=== PATIENT | male | born 1980 | race Caucasian/White ===

== ENCOUNTER → 2018-11-01 | Outpatient (REF) | payer OTHER ==
[2018-11-01 12:55] LABS: ALBUMIN 3.8 GM/DL (3.2-5.2); ALT/SGPT 33 U/L (12-78); BILIRUBIN,TOTAL 0.4 MG/DL (0.2-1.0); BLOOD UREA NITROGEN 17 MG/DL (7-18); CALCIUM LEVEL 9.1 MG/DL (8.5-10.1); CARBON DIOXIDE LEVEL 27 MEQ/L (21-32); CHLORIDE LEVEL 105 MEQ/L (98-107); CHOLESTEROL LEVEL 177 MG/DL (<200); CHOLESTEROL RISK RATIO 4.022 (<5); CREATININE FOR GFR 0.88 MG/DL (0.70-1.30); GLOMERULAR FILTRATION RATE > 60.0 (>60); GLUCOSE, FASTING 84 MG/DL (70-100); HDL CHOLESTEROL 44 MG/DL (>40); LDL CHOLESTEROL 88 MG/DL (<100); NON-HDL-C 133 MG/DL; POTASSIUM SERUM 4.4 MEQ/L (3.5-5.1); SODIUM LEVEL 140 MEQ/L (136-145); TOTAL PROTEIN 6.7 GM/DL (6.4-8.2); TRIGLYCERIDES LEVEL 223 MG/DL (<150)
== END ==
LOC: M SFHCCLAY 07:11
PROVIDERS: ATTEND Family Medicine
DX: Z00.00 Encounter for general adult medical examination without abnormal findings (principal); Z13.220 Encounter for screening for lipoid disorders; Z13.1 Encounter for screening for diabetes mellitus; Z83.3 Family history of diabetes mellitus

== ENCOUNTER 2019-05-15 09:01 | Day surgery (SDC) | payer BC ==
[~2019-05-15] VITALS: Ht 175.3 cm; Wt 104.3 kg
[~2019-05-15 09:01] MED LIST: NS 1,000 ML IV ONE
[2019-05-15] MEDS ORDERED: LIDOCAINE 2% INJ 100 MG/5 ML SDV (FOR ANES.) As Ordered ONE (10:22)
[2019-05-15] MEDS ORDERED: PROPOFOL 500 MG/50 ML VIAL As Ordered ONE (10:22)
--- NOTE | 2019-05-15 10:35 | ROOR ---
Patient Name: Leroy Devries Procedure Date: 05/15/2019 10:18 AM Date of : 1980 Age: 39 Room: [facility] Gender: Male Note Status: Finalized Procedure: Total Colonoscopy to Cecum + ileoscopy Indications: Rectal bleeding Providers: Tae Samuel MD Referring MD: Lisette MOSQUEDA DO Requesting Provider: Medicines: Monitored Anesthesia Care Complications: No immediate complications. Procedure: Pre-Anesthesia Assessment: - The heart rate, respiratory rate, oxygen saturations, blood pressure, adequacy of pulmonary ventilation, and response to care were monitored throughout the procedure. The Colonoscope was introduced through the anus and advanced to the terminal ileum, with identification of the appendiceal orifice and IC valve. The colonoscopy was performed without difficulty. The patient tolerated the procedure well. The quality of the bowel preparation was excellent. Findings: The perianal and digital rectal examinations were normal. Non-bleeding external hemorrhoids were found during retroflexion. The hemorrhoids were small and Grade I (internal hemorrhoids that do not prolapse). No other significant abnormalities were identified in a careful examination of the remainder of the colon. The exam was otherwise without abnormality on direct and retroflexion views. The terminal ileum appeared normal. Impression: - Non-bleeding external hemorrhoids. - The examination was otherwise normal on direct and retroflexion views. - The examined portion of the ileum was normal. - No specimens collected. - The exam was otherwise normal to the cecum. Recommendation: - Patient has a contact number available for emergencies. The signs and symptoms of potential delayed complications were discussed with the patient. Return to normal activities tomorrow. Written discharge instructions were provided to the patient. - Discharge patient to home. - Continue present medications. - Repeat colonoscopy at age 51 for screening purposes. - Return to referring physician. - The findings and recommendations were discussed with the patient's family. Tae Samuel MD Tae Samuel MD 05/15/2019 10:35:43 AM Electronically signed by Tae Samuel MD Number of Addenda: 0 Note Initiated On: 05/15/2019 10:18 AM Estimated Blood Loss: Estimated blood loss: none.
[2019-05-15 10:55] VITALS: BP 127/78
== END 2019-05-15 11:08 | disposition home or self-care (01) ==
LOC: M OPP 09:01
PROVIDERS: ATTEND Internal Medicine Gastroenterology
DX: K64.0 First degree hemorrhoids (principal); K62.5 Hemorrhage of anus and rectum

== ENCOUNTER → 2020-11-26 | Outpatient (REF) | payer OTHER ==
[2020-11-26 12:23] LABS: BLOOD UREA NITROGEN 18 MG/DL (7-18); CALCIUM LEVEL 9.3 MG/DL (8.5-10.1); CARBON DIOXIDE LEVEL 28 MEQ/L (21-32); CHLORIDE LEVEL 107 MEQ/L (98-107); CHOLESTEROL LEVEL 174 MG/DL (<200); CHOLESTEROL RISK RATIO 3.346 (<5); CREATININE FOR GFR 0.95 MG/DL (0.70-1.30); GLOMERULAR FILTRATION RATE > 60.0 (>60); GLUCOSE, FASTING 83 MG/DL (70-100); HDL CHOLESTEROL 52 MG/DL (>40); LDL CHOLESTEROL 97 MG/DL (<100); NON-HDL-C 122 MG/DL; POTASSIUM SERUM 4.4 MEQ/L (3.5-5.1); SODIUM LEVEL 140 MEQ/L (136-145); TRIGLYCERIDES LEVEL 127 MG/DL (<150)
== END ==
LOC: M SFHCCLAY 08:03
PROVIDERS: ATTEND Family Medicine
DX: Z00.00 Encounter for general adult medical examination without abnormal findings (principal); E78.1 Pure hyperglyceridemia; Z13.1 Encounter for screening for diabetes mellitus; Z83.3 Family history of diabetes mellitus

== ENCOUNTER → 2020-12-22 | Outpatient (CLI) | payer OTHER ==
[~2020-12-22] MED LIST changes: -NS 1,000 ML IV ONE; +PARO20TA4 PO
== END ==
LOC: M LABSMTC 08:00
PROVIDERS: ATTEND Anesthesiology
DX: Z01.812 Encounter for preprocedural laboratory examination (principal); Z20.822 Contact with and (suspected) exposure to COVID-19

== ENCOUNTER 2020-12-27 09:04 | Day surgery (SDC) | payer OTHER ==
[~2020-12-27] VITALS: Ht 172.7 cm; Wt 97.1 kg
[~2020-12-27 09:04] MED LIST changes: +LR 1,000 ML IV ONE; +ceFAZolin SOD 2 GM in IV 1 EA IV ONE
[2020-12-27 09:53] LABS: HEMATOCRIT 42.7 % (42.0-52.0); HEMOGLOBIN 13.8 g/dl (13.5-17.5); MEAN CORPUSCULAR HEMOGLOBIN 28.8 pg (27.0-33.0); MEAN CORPUSCULAR HGB CONC 32.3 g/dl (32.0-36.5); MEAN CORPUSCULAR VOLUME 89.1 fl (80.0-96.0); PLATELET COUNT, AUTOMATED 179 10^3/uL (150-450); RED BLOOD COUNT 4.79 10^6/uL (4.30-6.10); WHITE BLOOD COUNT 7.2 10^3/uL (4.0-10.0)
[2020-12-27] MEDS ORDERED: fentaNYL 250 MCG/5 ML INJECTION (J3010) As Ordered ONE (10:10)
[2020-12-27] MEDS ORDERED: ONDANSETRON 4MG/2ML VIAL As Ordered ONE (10:11)
[2020-12-27] MEDS ORDERED: LIDOCAINE 2% 100MG/5ML SDV (FOR ANES.) As Ordered ONE (10:11)
[2020-12-27] MEDS ORDERED: KETOROLAC 60MG 2ML VIAL As Ordered ONE (10:11)
[2020-12-27] MEDS ORDERED: MIDAZOLAM INJ 2MG/2ML VIAL (J2250 PER 1MG) As Ordered ONE (10:11)
[2020-12-27] MEDS ORDERED: dexameTHASONE 4 MG/ML 1ML VIAL (J1100 PER 1MG) As Ordered ONE (10:11)
[2020-12-27] MEDS ORDERED: ROCURONIUM BROMIDE 50 MG/5 ML VIAL As Ordered ONE ×2 (10:11→11:46)
[2020-12-27] MEDS ORDERED: propofoL 200 MG/20 ML VIAL As Ordered ONE ×2 (10:12→11:24)
[2020-12-27] MEDS ORDERED: BUPIVACAINE/EPIN 0.25% 30 ML VIAL As Ordered ONE (11:02)
[2020-12-27] MEDS ORDERED: GLYCOPYRROLATE INJ 0.2 MG/ML 2 ML VIAL As Ordered ONE (11:22)
[2020-12-27] MEDS ORDERED: SUGAMMADEX SODIUM 500 MG/5 ML VIAL (BRIDION) As Ordered ONE (11:45)
[2020-12-27] MEDS ORDERED: ACETAMINOPHEN 1000MG 100ML IV BTL (OFIRMEV) (J0131 PER 10MG) As Ordered ONE (11:48)
[2020-12-27] MEDS ORDERED: oxyCODONE 5MG TAB PO PRN (12:45)
[2020-12-27] MEDS ORDERED: fentaNYL 100 MCG/2 ML INJECTION (J3010) IV PRN (12:45)
[2020-12-27] MEDS ORDERED: NS 1,000 ML IV SCH (12:45)
[2020-12-27] MEDS ORDERED: LR 1,000 ML IV SCH (12:45)
[2020-12-27] MEDS ORDERED: PERCOCET 5MG/325MG TAB PO PRN (12:45)
[2020-12-27] MEDS ORDERED: ONDANSETRON 4MG/2ML VIAL IV PRN (12:45)
[2020-12-27 14:30] VITALS: BP 142/85
== END 2020-12-27 14:35 | disposition home or self-care (01) ==
LOC: M SDC 09:04
PROVIDERS: ATTEND Surgery
DX: K80.10 Calculus of gallbladder with chronic cholecystitis without obstruction (principal); F32.9 Major depressive disorder, single episode, unspecified; Z79.899 Other long term (current) drug therapy
CPT/HCPCS: 36415; 47562; 85027; 88304; J0131; J0690; J1100; J1885; J2250; J2405; J3010

== ENCOUNTER → 2022-11-05 | Outpatient (REF) | payer OTHER ==
[~2022-11-05] MED LIST changes: -LR 1,000 ML IV ONE; -ceFAZolin SOD 2 GM in IV 1 EA IV ONE
[2022-11-05 17:49] LABS: HEMOGLOBIN A1c 5.1 % (4.0-6.0)
[2022-11-05 18:07] LABS: BLOOD UREA NITROGEN 21 MG/DL (9-23); CALCIUM LEVEL 9.5 MG/DL (8.5-10.1); CARBON DIOXIDE LEVEL 25 MMOL/L (20-31); CHLORIDE LEVEL 106 MMOL/L (98-107); CHOLESTEROL LEVEL 177 MG/DL (<200); CHOLESTEROL RISK RATIO 3.12 (<5); CREATININE FOR GFR 0.84 MG/DL (0.70-1.30); FREE T4 1.19 NG/DL (0.89-1.76); GLOMERULAR FILTRATION RATE > 60.0 (>60); GLUCOSE, FASTING 87 MG/DL (60-100); HDL CHOLESTEROL 56.7 MG/DL (>40); LDL CHOLESTEROL 107.1 MG/DL (<100); NON-HDL-C 120 MG/DL; SODIUM LEVEL 138 MMOL/L (136-145); THYROID STIMULATING HORMONE 0.632 uIU/ML (0.55-4.78); TRIGLYCERIDES LEVEL 66 MG/DL (<150)
== END ==
LOC: M SFHCCLAY 10:00
PROVIDERS: ATTEND Nurse Practitioner Family
DX: Z13.1 Encounter for screening for diabetes mellitus (principal); Z13.220 Encounter for screening for lipoid disorders; Z13.29 Encounter for screening for other suspected endocrine disorder; R00.1 Bradycardia, unspecified

== ENCOUNTER → 2024-02-07 | Outpatient (REF) | payer OTHER, SELFPAY ==
[2024-02-07 14:29] LABS: SEMEN APPEARANCE OPAQUE (OPAQUE); SEMEN VISCOSITY LIQUID (LIQUID); SEMEN pH 8.5 (7.0-8.0); SPERM CONCENTRATION 46.6 M/ml (>=15.0); WBC CONCENTRATION <=1 M/ml (<=1 M/ml)
== END ==
LOC: M SMT 14:25
PROVIDERS: ATTEND Nurse Practitioner Family
DX: Z31.89 Encounter for other procreative management (principal)

== ENCOUNTER → 2024-12-27 | Outpatient (REF) | payer BC ==
[2024-12-27 18:53] LABS: ALKALINE PHOSPHATASE 64 U/L (40-129); ALT/SGPT 37 U/L (7.0-40); AST/SGOT 22 U/L (<34); BILIRUBIN,TOTAL 0.5 MG/DL (0.3-1.2); BLOOD UREA NITROGEN 19 MG/DL (9-23); CARBON DIOXIDE LEVEL 23 MMOL/L (20-31); CHLORIDE LEVEL 108 MMOL/L (98-107); CHOLESTEROL LEVEL 173 MG/DL (<200); CHOLESTEROL RISK RATIO 4.08 (<5); GLOMERULAR FILTRATION RATE > 60.0 (>60); GLUCOSE, FASTING 75 MG/DL (60-100); HDL CHOLESTEROL 42.3 MG/DL (>40); LDL CHOLESTEROL 75.9 MG/DL (<100); NON-HDL-C 130.7 MG/DL; POTASSIUM SERUM 3.9 MMOL/L (3.5-5.1); SODIUM LEVEL 143 MMOL/L (136-145); TOTAL PROTEIN 7.1 G/DL (5.7-8.2); TRIGLYCERIDES LEVEL 274 MG/DL (<150)
[2024-12-27 18:55] LABS: FREE T4 1.29 NG/DL (0.89-1.76); THYROID STIMULATING HORMONE 0.702 uIU/ML (0.55-4.78)
[2024-12-27 19:10] LABS: HEMOGLOBIN A1c 5.1 % (4.0-6.0)
== END ==
LOC: M SFHCCLAY 14:31
PROVIDERS: ATTEND Nurse Practitioner Family
DX: Z00.00 Encounter for general adult medical examination without abnormal findings (principal); R53.83 Other fatigue

== ENCOUNTER → 2025-06-22 | Outpatient (CLI) | payer OTHER ==
[2025-06-28 16:42] LABS: TESTOSTERONE FREE (DIRECT) 38.1 pg/mL (35.0-155.0); TESTOSTERONE TOTAL FOR T&D 207.0 ng/dL (250-1100)
== END ==
LOC: M WUC 14:56
PROVIDERS: ATTEND Physician Assistant
DX: R68.82 Decreased libido (principal)